=== PATIENT | male | born 1955 | race Caucasian/White ===

== ENCOUNTER → 2019-10-16 | Day surgery (SDC) | payer MEDICARE, OTHER | LOC: MSO 07:26 | DX: Z12.11 Encounter for screening for malignant neoplasm of colon (principal); D12.4 Benign neoplasm of descending colon; Z80.0 Family history of malignant neoplasm of digestive organs; Z98.52 Vasectomy status | CPT/HCPCS: 00811; J2704; J3010; J7120 ==

== ENCOUNTER 2021-12-08 10:55 | Outpatient (RCR) | payer MEDICARE, OTHER | END 2021-12-20 | disposition home or self-care (01) | LOC: PT | DX: M25.511 Pain in right shoulder (principal); M25.512 Pain in left shoulder ==

== ENCOUNTER 2021-12-24 11:28 | Outpatient (RCR) | payer MEDICARE, OTHER | END 2022-01-01 17:00 | disposition home or self-care (01) | LOC: PT 11:28 | DX: M25.511 Pain in right shoulder (principal); M25.512 Pain in left shoulder ==

== ENCOUNTER → 2022-09-18 | Outpatient (CLI) | payer MEDICARE, OTHER | LOC: RAD 13:21 | DX: D48.5 Neoplasm of uncertain behavior of skin (principal); M25.811 Other specified joint disorders, right shoulder ==

== ENCOUNTER → 2022-09-30 | Outpatient (CLI) | payer MEDICARE, OTHER | LOC: RAD 08:57 | DX: Z13.6 Encounter for screening for cardiovascular disorders (principal) ==

== ENCOUNTER 2024-01-05 19:47 | Emergency (ER) | payer MEDICARE, OTHER ==
[~2024-01-05 19:47] MED LIST: Cyclobenzaprine 10 MG TAB PO ONE; Ketorolac 30 MG/ML VIAL IM ONE; traMADol 50 MG TAB PO ONE
== END 2024-01-05 21:18 | disposition home or self-care (01) ==
LOC: ED 19:47
DX: I87.2 Venous insufficiency (chronic) (peripheral) (principal); M54.30 Sciatica, unspecified side
CPT/HCPCS: J1885

== ENCOUNTER → 2024-11-20 | Day surgery (SDC) | payer MEDICARE, OTHER ==
[~2024-11-20] MED LIST changes: -Cyclobenzaprine 10 MG TAB PO ONE; -Ketorolac 30 MG/ML VIAL IM ONE; +Lidocaine PF 2% (20 MG/ML) 5 ML VIAL ONE; -traMADol 50 MG TAB PO ONE
== END | disposition home or self-care (01) ==
LOC: MSO 08:09
DX: Z12.11 Encounter for screening for malignant neoplasm of colon (principal); R19.5 Other fecal abnormalities; Z86.0100 Personal history of colon polyps, unspecified; Z80.0 Family history of malignant neoplasm of digestive organs
CPT/HCPCS: 00812; J2704; J7120

== ENCOUNTER → 2024-12-05 | Outpatient (CLI) | payer MEDICARE, OTHER ==
[~2024-12-05] MED LIST changes: +Gadoterate 20 ML VIAL IV ONE; -Lidocaine PF 2% (20 MG/ML) 5 ML VIAL ONE
== END ==
LOC: RAD 10:22
DX: D48.5 Neoplasm of uncertain behavior of skin (principal); R22.31 Localized swelling, mass and lump, right upper limb
CPT/HCPCS: A9575